=== PATIENT | male | born 1960 | race Caucasian/White ===

== ENCOUNTER 2020-01-11 12:37 | Observation (INO) | payer MEDICAID ==
[2020-01-11] MEDS ORDERED: Lactated Ringers 1,000 ML IV ONE ×3 (12:52→20:15)
[2020-01-11] MEDS ORDERED: LORazepam 2 MG/ML SDV IVPUSH ONE (12:55)
[2020-01-11] MEDS: Multivitamins w-Iron/Ca/FA/Min 1 TAB, Thiamine 100 MG, Folic Acid 1 MG, Magnesium Oxide... PO SCH ×3 (13:20)
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
[2020-01-11 14:00] LABS: PTT,PARTIAL THROMBOPLSTIN TIME 24.2 SEC (24.0-36.0)
[2020-01-11] MEDS ORDERED: Haloperidol Lactate 5 MG/ML SDV IV ONE (14:19)
[2020-01-11 14:21] LABS: CHLORIDE,CL 104 mmol/L (98-107); SODIUM,NA 143 mmol/L (136-145)
[2020-01-11 14:31] LABS: ACETAMINOPHEN 0 ug/ml (10-30); ANION GAP 16.9 mmol/L (10-20)
[2020-01-11] MEDS ORDERED: LORazepam 1 MG Tab PO PRN (14:40)
[2020-01-11] MEDS ORDERED: Ondansetron 4 MG/2 ML SDV IVPUSH PRN (14:40)
[2020-01-11] MEDS ORDERED: Lactated Ringers 1,000 ML IV SCH ×5 (14:45→22:15)
[2020-01-11] MEDS: Pantoprazole 40 MG Tab.CR PO SCH (15:57)
[2020-01-11 18:08] LABS: BARBITURATE SCREEN,URINE NEGATIVE (NEGATIVE); BENZODIAZEPINES SCREEN,URINE NEGATIVE (NEGATIVE); EDDP,URINE SCREEN NEGATIVE (NEGATIVE); METHAMPHETAMINE SCREEN, URINE NEGATIVE (NEGATIVE); TCA SCREEN,URINE NEGATIVE (NEGATIVE); THC SCREEN,URINE 50 NG/ML NEGATIVE (NEGATIVE)
[2020-01-11] MEDS: LORazepam 2 MG/ML SDV IV PRN ×2 (19:42→21:58)
[2020-01-11] MEDS: Sodium Chloride 0.9% 10 ML Syringe FLUSH PRN (21:58)
[2020-01-12] MEDS: LORazepam 2 MG/ML SDV IV PRN ×2 (00:50→05:01)
[2020-01-12] MEDS: Sodium Chloride 0.9% 10 ML Syringe FLUSH PRN ×2 (00:50→04:59)
[2020-01-12] MEDS: Lactated Ringers 1,000 ML IV SCH ×2 (00:54→04:59)
[2020-01-12] MEDS: Pantoprazole 40 MG Tab.CR PO SCH (06:14)
[2020-01-12 06:47] LABS: ANION GAP 12.1 mmol/L (10-20); CHLORIDE,CL 105 mmol/L (98-107); SODIUM,NA 141 mmol/L (136-145)
[2020-01-12] MEDS ORDERED: Multivitamins with Iron/Calcium/Folic Acid/Minerals Tab PO SCH (08:00)
[2020-01-12] MEDS ORDERED: Folic Acid 1 MG Tab PO SCH (08:00)
[2020-01-12] MEDS ORDERED: Thiamine 100 MG Tab PO SCH (08:00)
[2020-01-12] MEDS: Multivitamins w-Iron/Ca/FA/Min 1 TAB, Thiamine 100 MG, Folic Acid 1 MG, Magnesium Oxide... PO SCH ×3 (08:47)
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
== END 2020-01-12 14:35 | disposition home or self-care (01) ==
LOC: VM.ED 12:37 → VM.MS 14:26
PROVIDERS: ADMIT Nurse Practitioner Family; ATTEND Nurse Practitioner Family
DX: F10.220 Alcohol dependence with intoxication, uncomplicated (principal); E86.0 Dehydration; R74.0 Nonspecific elevation of levels of transaminase and lactic acid dehydrogenase [LDH]; M62.82 Rhabdomyolysis; Y90.0 Blood alcohol level of less than 20 mg/100 ml
CPT/HCPCS: 36415; 80053; 80305-QW; 80307; 81001; 82140; 82550; 83605; 83690; 83735; 83874; 85025; 85610; 85730; 86140; 96361; 96374; 96375; 96376; 99285-25; A9270-GY; G0378; J1630; J2060; J7120